=== PATIENT | male | born 1960 | race African-American/Black ===

== ENCOUNTER 2021-06-28 10:20 | Inpatient (IN) | payer OTHER ==
[~2021-06-28] VITALS: Ht 185.4 cm; Wt 124.7 kg
[~2021-06-28 10:20] MED LIST: ATORVASTATIN CA10 MG PO; AZITHROMYCIN 2250 MG PO; CARVEDILOL12.5 MG PO; CEFTIN500 MG PO; DOXYCYCLINE 10100 MG PO; HYDROCHLOROTH12.5 M1 PO; LISINOPRIL20 MG PO; METFORMIN HCL500 MG PO; PANTOPRAZOLE SO40 M1 PO
[2021-06-28 10:24] VITALS: BP 222/130
[2021-06-28 11:13] LABS: HEMATOCRIT 40.1 % (42.0-52.0); MCH 25.1 pg (26.0-34.0); MCV 83.9 fL (80.0-100.0); PLATELET COUNT 255 thou/uL (150-400); RBC 4.79 mil/uL (4.50-6.00); RDW 16.8 % (10.5-14.5); WBC 5.6 thou/uL (4.0-11.0)
[2021-06-28 11:26] LABS: CALCIUM 8.3 mg/dL (8.5-10.1); CREATININE 2.6 mg/dL (0.7-1.3); POTASSIUM 5.2 mmol/L (3.5-5.1)
[2021-06-28 12:30] LABS: ABSOLUTE NEUTROPHILS 3.2 thou/uL (1.4-8.2)
[2021-06-28 13:46] VITALS: BP 170/92
[2021-06-28 13:54] LABS: URINE BILIRUBIN NEGATIVE (Negative); URINE BLOOD NEGATIVE (Negative); URINE CLARITY CLEAR; URINE COLOR YELLOW; URINE GLUCOSE-RANDOM* NEGATIVE (Negative); URINE KETONES NEGATIVE (Negative); URINE LEUKOCYTES-REFLEX NEGATIVE (Negative); URINE NITRITE-REFLEX NEGATIVE (Negative); URINE PROTEIN (DIPSTICK) 1+ (Negative); URINE SPECIFIC GRAVITY 1.015 (1.005-1.035); URINE UROBILINOGEN 0.2 E.U./dl (0.2-1.0)
--- NOTE | 2021-06-28 14:06 | EKG ---
[place] [address] [facility] [place] [address] ELECTROCARDIOGRAM REPORT Name: NI JAY Room #: 170-11 ADM IN M.R.#: [id number] Admission: 06/28/21 Attend Phys: Talon Parker MD Discharge: Date of : 64 Report #: [id number] [facility] ED Test Date: 2021-06-28 Test Time: 12:04:18 Pat Name: NI JAY Department: Room: 170 Gender: M Career Manager: tana : 1960 Requested By: Agusto Alexis Order Number: [id number] MD: Devon Hay Measurements Intervals [place] Rate: 75 P: 35 NC: 149 QRS: -34 QRSD: 98 T: 54 QT: 417 QTc: 466 Interpretive Statements Sinus rhythm LAE, consider biatrial enlargement Abnormal R-wave progression, late transition Left ventricular hypertrophy Nonspecific T abnormalities, anterior leads Compared to ECG 05/27/2016 09:27:18 ST (T wave) deviation now present Ventricular premature complex(es) no longer present Possible ischemia no longer present T-wave abnormality still present Electronically Signed On 06-28-2021 14:06:02 [employer] by Devon Hay [email or web address] <ELECTRONICALLY SIGNED> By: Devon Hay MD 06/28/21 1406 1204 1204 Devon Hay MD /EPI
[2021-06-28 15:52] VITALS: BP 178/104
--- NOTE | 2021-06-28 15:54 | NUR ---
ATTEMPTED TO CALL REPORT TO [facility]N [facility], WAS TOLD THAT THE ROOM WAS NOT CLEAN AND JOHN WOULD CALL ME BACK. WILL ATTEMPT TO CALL AGAIN.
[2021-06-28 17:25] VITALS: BP 190/119
[2021-06-28 20:02] VITALS: BP 166/88
[2021-06-29 00:28] VITALS: BP 141/82
[2021-06-29 03:56] VITALS: BP 137/85
--- NOTE | 2021-06-29 03:58 | NUR ---
PATIENT RESTING IN HIS ROOM WATCHING TV. PATIENT STATES THAT HE IS FEELING BETTER AT THIS TIME. STATED THAT HE HAD A TERRIBLE NOSE BLEED AND THAT HIS B/P WAS VERY HIGH. AT THIS TIME HIS PRESSURE IS STILL HYPERTENSIVE BUT HAS SIGNIFICANTLY IMPROVED COMPARED TO PRIOR VITALS CHECKS. PATIENT IS AAOX4 AND AMBULATES UNDER HIS POWN STRENGTH. HE IS COMPLIANT WITH ALL TREATMENT. HAS A VISITOR COME AND SEE HIM FOR A BIT BEFORE HS TIME. WILL CONTINUE TO [employer] FOR CHANGES IN PATIENT STATUS.
[2021-06-29 04:42] LABS: ABSOLUTE NEUTROPHILS 3.8 thou/uL (1.4-8.2); BASOPHILS 0.6 % (0.0-2.0); EOSINOPHILS 2.4 % (0.0-3.0); HEMATOCRIT 37.4 % (42.0-52.0); HEMOGLOBIN 11.3 gm/dL (14.0-18.0); LYMPHOCYTES 18.1 % (24.0-44.0); MCH 25.3 pg (26.0-34.0); MCHC 30.2 g/dL (28.0-37.0); MCV 83.9 fL (80.0-100.0); MONOCYTES 13.4 % (1.0-8.0); PLATELET COUNT 265 thou/uL (150-400); POLYS 65.5 % (36.0-66.0); RBC 4.46 mil/uL (4.50-6.00); WBC 5.9 thou/uL (4.0-11.0)
[2021-06-29 04:47] LABS: CREATININE 2.4 mg/dL (0.7-1.3); MAGNESIUM 1.5 mg/dL (1.8-2.4); POTASSIUM 5.7 mmol/L (3.5-5.1)
[2021-06-29 04:48] LABS: CHOLESTEROL 149 mg/dL (<200); HDL CHOLESTEROL 34 mg/dL (>40); LDL CHOLESTEROL 102 mg/dL (<100); TC:HDL 4.4 Ratio (Not establshd); TRIGLYCERIDE 66 mg/dL (<150); VLDL 13 mg/dL (<40)
[2021-06-29 04:51] LABS: SERUM ASSESSMENT Clear
[2021-06-29 08:00] VITALS: BP 180/108
[2021-06-29 17:00] VITALS: BP 160/103
--- NOTE | 2021-06-29 17:51 | NUR ---
PATIENT ASSESMENTS COMPLETED. PATIENT HAD RENAL US DONE TODAY.
[2021-06-29 19:48] VITALS: BP 161/108
[2021-06-29 23:33] VITALS: BP 156/92
--- NOTE | 2021-06-29 23:57 | NUR ---
PATIENT RESTING IN HIS BED WATCHING TV. HE STATES THAT HE IS FEELING GOOD AND PLANS TO DISCHARGE IN THE AM. HIS IS AAOX4. HIS BLOOD PRESSURE CONTIUES TO RUN ON THE HYPERTENSIVE SIDE. HE HAS NOT HAD ANY NOSE BLEED TODAY. HE IS ABLE TO WALK UNDER HIS OWN POWER. COOPERATIVE WITH MEDICATIONS AND TREATMENT. ALL SAFETY PRECAUTIONS ARE IN PLACE.
[2021-06-30 03:22] VITALS: BP 132/70
[2021-06-30 05:05] LABS: HEMOGLOBIN 11.1 gm/dL (14.0-18.0); MCH 25.5 pg (26.0-34.0); MCV 85.1 fL (80.0-100.0); RBC 4.35 mil/uL (4.50-6.00); WBC 5.4 thou/uL (4.0-11.0)
[2021-06-30 05:11] LABS: CREATININE 2.1 mg/dL (0.7-1.3); POTASSIUM 5.5 mmol/L (3.5-5.1)
[2021-06-30 07:00] VITALS: BP 156/102
[2021-06-30 11:00] VITALS: BP 112/73
[2021-06-30] MEDS ORDERED: CARVEDILOL12.5 MG PO (12:13)
[2021-06-30] MEDS ORDERED: NORVASC10 MG PO (12:13)
[2021-06-30] MEDS ORDERED: LASIX 40 MG TAB40 MG PO (12:14)
[2021-06-30 13:24] VITALS: BP 112/73
[2021-06-30 14:16] LABS: PROT/CREAT RATIO 0.2; URINE CREATININE-RANDOM* 65.8 mg/dL; URINE PROTEIN-RANDOM* 13.2 mg/dL (<11.9)
--- NOTE | 2021-06-30 14:50 | NUR ---
Pt was A&Ox4, VS stable and afebrile. Blood pressure was 156/102 in AM and 112/73 prior to discharge. No nose bleeds today. Pt is completly indpendent with personal cares. Pt was complient with meds and treatement. Discharge education was give. Pt communciated understanding education on medication and treatments. No concerns at this time.
== END 2021-06-30 15:02 | disposition home or self-care (01) | DRG 291 ==
LOC: ER 10:20 → EROBS 13:21 → 2N 17:15
PROVIDERS: Nurse Practitioner; Student in an Organized Health Care Education/Training Program; ADMIT Hospitalist; ATTEND Hospitalist
DX: I13.0 Hypertensive heart and chronic kidney disease with heart failure and stage 1 through stage 4 chronic kidney disease, or unspecified chronic kidney disease (principal); I50.31 Acute diastolic (congestive) heart failure; N17.0 Acute kidney failure with tubular necrosis; I16.1 Hypertensive emergency; N17.9 Acute kidney failure, unspecified; Z20.822 Contact with and (suspected) exposure to COVID-19; E78.5 Hyperlipidemia, unspecified; F12.90 Cannabis use, unspecified, uncomplicated; R04.0 Epistaxis; E11.22 Type 2 diabetes mellitus with diabetic chronic kidney disease; I50.9 Heart failure, unspecified; E87.5 Hyperkalemia; N18.9 Chronic kidney disease, unspecified; Z82.49 Family history of ischemic heart disease and other diseases of the circulatory system
CPT/HCPCS: 10081